=== PATIENT | male | born 1960 | race Caucasian/White ===

== ENCOUNTER 2019-02-09 10:14 | Day surgery (SDC) | payer OTHER ==
[2019-02-07 15:10] VITALS: BMI 28.0
[~2019-02-09 10:14] MED LIST: LACTATED RINGERS 1,000 ML IV SCH; LIDOCAINE 1% 20 ML VIAL (10MG/ML) FOR IV START INTRADERMA PRN
[2019-02-09 10:30] VITALS: RESP 16; TEMP 98.2
[2019-02-09] MEDS ORDERED: fentaNYL (PF) 50 MCG/ML 2 ML AMP ONE (11:10)
[2019-02-09] MEDS ORDERED: MIDAZOLAM 2 MG/2 ML VIAL ONE (11:10)
[2019-02-09] MEDS ORDERED: PROPOFOL 10 MG/ML 20 ML VIAL IV ONE (11:10)
--- NOTE | 2019-02-09 11:34 | P.PCN ---
Date of Procedure: 02/09/19 Procedure(s) Performed: BRIEF HISTORY: Patient is a 58-year-old pleasant white male scheduled for an elective colonoscopy as a part of screening for colorectal neoplasia. PROCEDURE PERFORMED: Colonoscopy. PREOPERATIVE DIAGNOSIS: Screening for colon cancer. IV sedation per Anesthesia. PROCEDURE: After informed consent was obtained, the patient, was brought into the endoscopy unit. IV sedation was administered by Anesthesia under continuous monitoring. Digital rectal examination was normal. External skin tag was noted. Initially the Olympus CF-160 flexible video colonoscope was then inserted in the rectum, gradually advanced into the cecum without any difficulty. Careful examination was performed as the scope was gradually being withdrawn. Ileocecal valve and the appendiceal orifice were visualized and appeared normal. Prep was excellent. Mucosa of the cecum, ascending colon, transverse colon, descending colon, sigmoid colon, and rectum appeared normal. Retroflexion was performed in the rectum and grade 2 internal hemorrhoids were seen. The patient tolerated the procedure well. IMPRESSION: Normal-appearing colon from rectum to cecum with no evidence of colorectal neoplasia Grade 2 internal hemorrhoids Small external skin. RECOMMENDATIONS: Findings of this examination were discussed with the patient as well as his family. He was advised to have a repeat screening colonoscopy in 10 years..
[2019-02-09 11:50] VITALS: BP 129/82; PULSE 77
== END 2019-02-09 12:25 | disposition home or self-care (01) ==
LOC: ORWHC2ENDO 10:14
PROVIDERS: ATTEND Internal Medicine Gastroenterology
DX: Z12.11 Encounter for screening for malignant neoplasm of colon (principal); K64.1 Second degree hemorrhoids; K64.4 Residual hemorrhoidal skin tags; Z98.890 Other specified postprocedural states
CPT/HCPCS: J2250; J3010; J2704; G0121

== ENCOUNTER 2024-03-14 05:38 | Observation (INO) | payer BC, OTHER ==
[2024-03-14] MEDS: ONDANSETRON 4 MG/2 ML VIAL IVP STA (06:10)
[2024-03-14 06:12] LABS: Basophils % (A) 0 %; Eosinophils # (A) 0.3 k/uL (0-0.7); Eosinophils % (A) 5 %; HGB 15.4 gm/dL (13.0-17.5); Lymphocytes # (A) 1.8 k/uL (1.0-4.8); Lymphocytes % (A) 30 %; MCH 29.8 pg (25.0-35.0); MCHC 32.8 g/dL (31.0-37.0); MCV 90.8 fL (80.0-100.0); Mean Platelet Volume 7.4; Monocytes # (A) 0.4 k/uL (0-1.0); Monocytes % (A) 7 %; Neutrophils # (A) 3.2 k/uL (1.3-7.7); Neutrophils % (A) 55 %; Platelet Count 251 k/uL (150-450); RBC 5.18 m/uL (4.30-5.90); RDW 12.6 % (11.5-15.5); WBC 5.9 k/uL (3.8-10.6)
[2024-03-14] MEDS: LABETALOL 5 MG/ML VIAL MDV IVP STA (06:13)
[2024-03-14] MEDS: LORazepam 2 MG/ML INJ IV STA (06:14)
[2024-03-14] MEDS: SODIUM CHLORIDE 0.9% 1,000 ML IV STA (06:18)
[2024-03-14 06:19] LABS: ALT 23 U/L (4-49); AST 27 U/L (17-59); African American GFR (CKD) >90 (>60 ml/min/1.73 sqM); Albumin 4.6 g/dL (3.5-5.0); Alkaline Phosphatase 80 U/L (38-126); Anion Gap 11 mmol/L; Blood Urea Nitrogen 16 mg/dL (9-20); Calcium 9.4 mg/dL (8.4-10.2); Carbon Dioxide 24 mmol/L (22-30); Chloride 103 mmol/L (98-107); Glucose 102 mg/dL (74-99); Lipase 132 U/L (23-300); Non-African American GFR(CKD) >90 (>60 ml/min/1.73 sqM); Sodium 138 mmol/L (137-145); Total Bilirubin 1.7 mg/dL (0.2-1.3); Total Protein 7.4 g/dL (6.3-8.2)
--- NOTE | 2024-03-14 06:19 | ED ---
Chest Pain HPI - General Chief Complaint: Chest Pain Stated Complaint: chest pain Time Seen by Provider: 03/14/24 05:57 Source: patient, RN notes reviewed Mode of arrival: ambulatory Limitations: no limitations - History of Present Illness Initial Comments: 63-year-old male presents emergency department with chief complaint of chest discomfort, neck discomfort hypertension. He has been having some issues of his neck which has been manage you but states is worse recently. Patient states that he had an appoint with his primary a while back was told that he should be started on some blood pressure meds he states he was monitoring for a while and was usually around 135/85 never higher states recently has been more lightheaded, dizzy show checked his blood pressure and his blood pressure has been elevated 200/100had increasing stress he has no prior cardiac disease that he knows of. Patient denies any lower extremity swelling pain any discomfort. Denies palpitations no history A-fib. - Related Data Home Medications Medication Instructions Recorded Confirmed No Known Home Medications 05/15/15 03/14/24 Allergies Allergy/AdvReac Type Severity Reaction Status Date / Time No Known Allergies Allergy Verified 03/14/24 09:25 Review of Systems ROS Statement: Those systems with pertinent positive or pertinent negative responses have been documented in the HPI. ROS Other: All systems not noted in ROS Statement are negative. EKG Findings - EKG Comments: EKG Findings:: EKG performed at 5: 51 sinus rhythm rate of 74 [place] 184 QRS 96 QT/QTc 366/394 - EKG Results: EKG: interpreted by YOVANY Past Medical History Additional Past Medical History / Comment(s): NEUROPATHY, PROBLEMS WITH BOWEL MOVEMENTS History of Any Multi-Drug Resistant Organisms: None Reported Past Surgical History: Hernia Repair Additional Past Surgical History / Comment(s): BILAT INGUINAL HERNIA, LT HAND tendon repair, COLONOSCOPY Past Anesthesia/Blood Transfusion Reactions: Postoperative Nausea & Vomiting (PONV) Additional Past Anesthesia/Blood Transfusion Reaction / Comment(s): HAD RUPTURED LOWER DISC POST 2ND HERNIA SX IN 2014 Past Psychological History: No Psychological Hx Reported Past Alcohol Use History: None Reported Past Drug Use History: None Reported - Past Family History Mother Family Medical History: Cancer Additional Family Medical History / Comment(s): PANCREATIC Father Family Medical History: CVA/TIA General Exam Limitations: no limitations General appearance: alert, in no apparent distress Head exam: Present: atraumatic, normocephalic, normal inspection Eye exam: Present: normal appearance, PERRL, EOMI. Absent: scleral icterus, con junctival injection, periorbital swelling ENT exam: Present: normal exam, normal oropharynx, mucous membranes moist Neck exam: Present: normal inspection. Absent: tenderness, meningismus, lymphadenopathy Respiratory exam: Present: normal lung sounds bilaterally. Absent: respiratory distress, wheezes, rales, rhonchi, stridor Cardiovascular Exam: Present: regular rate, normal rhythm, normal heart sounds. Absent: systolic murmur, diastolic murmur, rubs, gallop, clicks GI/Abdominal exam: Present: soft, normal bowel sounds. Absent: distended, tenderness, guarding, rebound, rigid Neurological exam: Present: alert, oriented X3, CN II-XII intact Course Vital Signs 03/14/24 03/14/24 03/14/24 05:39 06:11 06:36 Temperature 97.2 F L 98.0 F Pulse Rate 85 74 74 Respiratory 18 16 18 Rate Blood Pressure 191/105 172/96 157/109 O2 Sat by Pulse 98 100 100 Oximetry 03/14/24 03/14/24 03/14/24 07:34 07:45 08:43 Temperature 98.8 F Pulse Rate 67 81 75 Respiratory 16 16 16 Rate Blood Pressure 158/101 160/104 147/89 O2 Sat by Pulse 98 96 97 Oximetry 03/14/24 03/14/24 09:05 11:42 Temperature 98.8 F Pulse Rate 74 72 Respiratory 16 16 Rate Blood Pressure 147/98 147/97 O2 Sat by Pulse 98 99 Oximetry Chest Pain MDM - MDM Was pt. sent in by a medical professional or institution (, PA, DIRECTOR OF MANAGED CARE, urgent care, hospital, or senior care...) When possible be specific @ -No Did you speak to anyone other than the patient for history (EMS, parent, family, police, friend...)? What history was obtained from this source @ -No Did you review nursing and triage notes (agree or disagree)? Why? @ -I reviewed and agree with nursing and triage notes Were old charts reviewed (outside hosp., previous admission, EMS record, old EKG, old radiological studies, urgent care reports/EKG's, senior care records)? Report findings @ -No old charts were reviewed Differential Diagnosis (chest pain, altered mental status, abdominal pain women, abdominal pain men, vaginal bleeding, weakness, fever, dyspnea, syncope, headache, dizziness, GI bleed, back pain, seizure, CVA, palpatations, mental he alth, musculoskeletal)? @ -Differential Chest Pain: Stable Angina, Unstable Angina, STEMI, NSTEMI Aortic Dissection, Pneumothorax, Musculoskeletal, Esophageal Spasm GERD, Cholecystitis, Pancreatitis, Zoster, this is not meant to be an all-inclusive list. EKG interpreted by me (3pts min.). @ -As above X-rays interpreted by me (1pt min.). @ -Chest x-ray shows no acute cardiopulmonary process. CT interpreted by me (1pt min.). @ -None done U/S interpreted by me (1pt. min.). @ -None done What testing was considered but not performed or refused? (CT, X-rays, U/S, labs)? Why? @ -None What meds were considered but not given or refused? Why? @ -None Did you discuss the management of the patient with other professionals (professionals i.e. , PA, DIRECTOR OF MANAGED CARE, lab, RT, psych nurse, social media developer, solution developer, teacher, airframe technical officer, upper caser)? Give summary @ -Dr. Hein for admission Was smoking cessation discussed for >3mins.? @ -No Was critical care preformed (if so, how long)? @ -No Were there social determinants of health that impacted care today? How? (Homelessness, low income, unemployed, alcoholism, drug addiction, transportation, low edu. Level, literacy, decrease access to med. care, care home, rehab)? @ -No Was there de-escalation of care discussed even if they declined (Discuss DNR or withdrawal of care, Hospice)? DNR status @ -No What co-morbidities impacted this encounter? (DM, HTN, Smoking, COPD, CAD, Cancer, CVA, ARF, Chemo, Hep., AIDS, mental health diagnosis, sleep apnea, morbid obesity)? @ -None Was patient admitted / discharged? Hospital course, mention meds given and route, prescriptions, significant lab abnormalities, going to OR and other pertinent info. @ -[Admit the patient presented for complaints of chest pain, hypertension, lightheadedness. Patient will be made for cardiac rule out initial troponin EKG unremarkable. Undiagnosed new problem with uncertain prognosis? @ -No Drug Therapy requiring intensive monitoring for toxicity (Heparin, Nitro, Insulin, Cardizem)? @ -No Were any procedures done? @ -No Diagnosis/symptom? @ -Chest pain hypertension Acute, or Chronic, or Acute on Chronic? @Acute Uncomplicated (without systemic symptoms) or Complicated (systemic symptoms)? @ -Complicated Side effects of treatment? @ -No Exacerbation, Progression, or Severe Exacerbation? @ -No Poses a threat to life or bodily function? How? (Chest pain, [place], SD, pneumonia, PE, COPD, DKA, ARF, appy, cholecystitis, CVA, Diverticulitis, Homicidal, Suicidal, threat to staff... and all critical care pts) @ -Yes possible ACS causing cardiac function Disposition Clinical Impression: Chest pain, Hypertension Disposition: ADMITTED IP TO THIS HOSP Time of Disposition: 08:15
[2024-03-14 06:28] LABS: NT-Pro-B-Type Natriuretic Pept 88 pg/mL
[2024-03-14] MEDS: KETOROLAC 15 MG/ML 1 ML VIAL IVP STA (06:34)
[2024-03-14 07:09] LABS: Partial Thromboplastin Time 22.5 sec (22.0-30.0); Prothrombin Time 11.2 sec (10.0-12.5)
[2024-03-14 07:33] VITALS: RESP 16
[2024-03-14] MEDS: hydrALAZINE HCL 20 MG/ML 1 ML VIAL IVP STA ×2 (07:48→08:44)
--- NOTE | 2024-03-14 07:51 | XR ---
EXAMINATION TYPE: XR chest 2V DATE OF EXAM: 03/14/2024 7:30 AM COMPARISON: Chest radiographs from 03/14/2024 CLINICAL INDICATION: Male, 63 years old with history of pain; TECHNIQUE: XR chest 2V Frontal and lateral views of the chest. FINDINGS: Lungs/Pleura: There is no evidence of pleural effusion, focal consolidation, or pneumothorax. Pulmonary vascularity: Unremarkable. Heart/mediastinum: Cardiomediastinal silhouette is unremarkable. Musculoskeletal: No acute osseous pathology. Other findings: None IMPRESSION: 1. No acute cardiopulmonary disease process. 2. COPD changes. [facility], , 03/14/2024 7:49 AM
[2024-03-14] MEDS ORDERED: NITROGLYCERIN SL TABS 0.4 MG TAB SUBLINGUAL PRN (08:15)
[2024-03-14] MEDS: ASPIRIN 81 MG PO STA (08:42)
--- NOTE | 2024-03-14 12:49 | P.CRDCN ---
History of Present Illness History of present illness: HISTORY OF PRESENT ILLNESS: This is a 63-year-old male with a past medical history significant for chronic back pain and hernia repair. Patient does not follow with a operating room coordinator. We hav e been asked to see the patient in consultation for chest pain. Patient examined at the bedside in the emergency room. Patient states this morning he "didn't feel right". He states he has been feeling "off" for the past couple days. He reports chronic back and neck pain. He states he has been having pain in the middle of his back. He states that it feels like someone is sitting on his shoulders. He also describes it as "I feel like I have a sinus infection in the back of my head". He reports when he moves his neck, has pain that travels down his back. He also reports he has been feeling lightheaded and dizzy. He states he checks his blood pressure at home and it usually runs 120-130s over 80s. He does report that he was told he had hypertension in the past and his PCP wanted to put him on blood pressure medications but he has been trying to control his blood pressure with his diet. Blood pressure has been elevated since admission to the hospital. However blood pressure at the time of examination is in the 130s. DIAGNOSTICS: - EKG reveals sinus mechanism with no signs of acute ischemia. - Chest xray no acute cardiopulmonary process. COPD changes. - Laboratory data: WBC 5.9. Hemoglobin 15.4. Platelet count 251. Sodium 138. Potassium 4.0. BUN 16. Creatinine 0.80. Magnesium 2.0. Troponin negative x 2. proBNP 88. - Current home cardiac medications include none. - No previous echocardiogram, stress test, or cardiac catheterization available in EMR for review REVIEW OF SYSTEMS: At the time of my exam: CONSTITUTIONAL: Denies fever or chills. HEENT: Denies blurred vision, vision changes, or eye pain. Denies hemoptysis CARDIOVASCULAR: Denies chest pain. Denies orthopnea. Denies PND. Denies palpitations RESPIRATORY: Denies shortness of breath. GASTROINTESTINAL: Denies abdominal pain. Denies nausea or vomiting. HEMATOLOGIC: Denies bleeding disorders. GENITOURINARY: Denies any blood in urine. SKIN: Denies pruitis. Denies rash. PHYSICAL EXAM: VITAL SIGNS: Reviewed. GENERAL: Well-developed in no acute distress. HEENT: Head is normocephalic. Pupils are equal, round. Sclerae anicteric. Mucous membranes of the mouth are moist. Neck supple. No JVD or thyromegaly LUNGS: Respirations even and unlabored. Lungs essentially clear to auscultation bilaterally. HEART: Regular rate and rhythm. S1 and S2 heard. ABDOMEN: Soft. Nondistended. Nontender. EXTREMITIES: Normal range of motion. No clubbing or cyanosis. Peripheral pulses intact. No lower extremity edema NEUROLOGIC: Awake and alert. Oriented x 3. ASSESSMENT: Back and neck pain, likely musculoskeletal, troponin negative x 3 Possible hypertension History of chronic back pain History of hernia repair PLAN: An acute coronary event has been ruled out Obtain 2D echo to assess cardiac structure and function Decrease aspirin to 81 mg daily Continue to monitor blood pressures. No addition of antihypertensive medications at this time N.p.o. at midnight Patient to undergo stress echocardiogram tomorrow Further recommendations pending patient course Nurse practitioner note has been reviewed by physician. Signing provider agrees with the documented findings, assessment, and plan of care documented by SOCIAL PROBLEMS SPECIALIST as a scribe. Past Medical History Additional Past Medical History / Comment(s): NEUROPATHY, PROBLEMS WITH BOWEL MOVEMENTS History of Any Multi-Drug Resistant Organisms: None Reported Past Surgical History: Hernia Repair Additional Past Surgical History / Comment(s): BILAT INGUINAL HERNIA, LT HAND tendon repair, COLONOSCOPY Past Anesthesia/Blood Transfusion Reactions: Postoperative Nausea & Vomiting (PONV) Additional Past Anesthesia/Blood Transfusion Reaction / Comment(s): HAD RUPTURED LOWER DISC POST 2ND HERNIA SX IN 2014 Past Psychological History: No Psychological Hx Reported Past Alcohol Use History: None Reported Past Drug Use History: None Reported - Past Family History Mother Family Medical History: Cancer Additional Family Medical History / Comment(s): PANCREATIC Father Family Medical History: CVA/TIA Medications and Allergies Home Medications Medication Instructions Recorded Confirmed Type No Known Home Medications 05/15/15 03/14/24 History Allergies Allergy/AdvReac Type Severity Reaction Status Date / Time No Known Allergies Allergy Verified 03/14/24 09:25 Physical Exam Vitals: Vital Signs Temp Pulse Resp BP Pulse Ox 03/14/24 09:05 74 16 147/98 98 03/14/24 08:43 75 16 147/89 97 03/14/24 07:45 81 16 160/104 96 03/14/24 07:34 98.8 F 67 16 158/101 98 03/14/24 06:36 74 18 157/109 100 03/14/24 06:11 98.0 F 74 16 172/96 100 03/14/24 05:39 97.2 F L 85 18 191/105 98 Intake and Output 03/13/24 03/14/24 03/14/24 22:59 06:59 14:59 Other: Weight 81.647 kg Results 03/14/24 06:00 03/14/24 06:00 Cardiac Enzymes 03/14/24 03/14/24 03/14/24 Range/Units 06:00 06:00 08:49 AST 27 (17-59) U/L Troponin I <0.012 <0.012 (0.000-0.034) ng/mL Coagulation 03/14/24 Range/Units 06:00 PT 11.2 (10.0-12.5) sec APTT 22.5 (22.0-30.0) sec CBC 03/14/24 Range/Units 06:00 WBC 5.9 (3.8-10.6) k/uL RBC 5.18 (4.30-5.90) m/uL Hgb 15.4 (13.0-17.5) gm/dL Hct 47.0 (39.0-53.0) % Plt Count 251 (150-450) k/uL Comprehensive Metabolic Panel 03/14/24 Range/Units 06:00 Sodium 138 (137-145) mmol/L Potassium 4.0 (3.5-5.1) mmol/L Chloride 103 (98-107) mmol/L Carbon Dioxide 24 (22-30) mmol/L BUN 16 (9-20) mg/dL Creatinine 0.80 (0.66-1.25) mg/dL Glucose 102 H (74-99) mg/dL Calcium 9.4 (8.4-10.2) mg/dL AST 27 (17-59) U/L ALT 23 (4-49) U/L Alkaline Phosphatase 80 (38-126) U/L Total Protein 7.4 (6.3-8.2) g/dL Albumin 4.6 (3.5-5.0) g/dL Current Medications Generic Name Dose Route Start Last Admin Trade Name Freq PRN Reason Stop Dose Admin Aspirin 325 mg 03/15/24 09:00 Aspirin 325 Mg Tab PO DAILY STEPHANIE Nitroglycerin 0.4 mg 03/14/24 08:15 Nitroglycerin Sl Tabs 0.4 Mg Tab SUBLINGUAL Q5M PRN Chest Pain Intake and Output 03/13/24 03/14/24 03/14/24 22:59 06:59 14:59 Other: Weight 81.647 kg 03/14/24 06:00 03/14/24 06:00
[2024-03-14] MEDS ORDERED: ONDANSETRON 4 MG/2 ML VIAL IVP PRN (17:41)
[2024-03-14] MEDS ORDERED: MELATONIN 3 MG TABLET PO PRN (17:41)
[2024-03-14] MEDS ORDERED: NALOXONE 0.4 MG/ML 1 ML VIAL IV PRN (17:41)
--- NOTE | 2024-03-14 17:43 | P.HPIM ---
History of Present Illness H&P Date: 03/14/24 63 year old M with no significant PMH presents to the ED for chest pain. Patient reports waking up this morning feeling anxious. He has been monitoring his BP which has been borderline elevated with BP 130/80s. He reported chest pressure and lightheadedness which prompted him to come to the ED. He did try checking his BP at home for which he got an error message. He reports chronic neck pain radiating to the upper back which has been previously workup up with Dr. Rosado. Currently reports frontal headache. No recent heavy lifting. He denies any currently chest pain, shortness of breath, palpitations, or lightheadedness. In the ED he underwent extensive evaluation. BP 190/105, HR 85, T 97.2F, RR 18, 98% on RA. CBC, Coag panel, CMP significant for glu 102, T. Bili 1.7. Trop < 0.012 x 3. Lipase 132. BNP 88. EKG NSR. CXR no acute process. Patient is admitted for Cardiology evaluation. General: non toxic, no distress, appears at stated age Derm: warm, dry Head: atraumatic, normocephalic, symmetric Eyes: EOMI, no lid lag, anicteric sclera Mouth: no lip lesion, mucus membranes moist Cardiovascular: S1S2 reg, no murmur Lungs: CTA bilateral, no rhonchi, no rales , no accessory muscle use Ext: no gross muscle atrophy, no edema, no contractures Neuro: no focal neuro deficits Psych: Alert, oriented, appropriate affect Based on my assessment of this patient, this patient meets a high complexity level of care. Hypertensive urgency: Status post Hydralazine 5 mg IV x 1. Most recent BP 13 81. Monitor for now. Chest pressure: ASA 81 mg PO QD. Echo ordered. ACS ruled out. Telemetry emiliano stefano. Cardiology plans on stress test in the AM. Chronic neck pain radiating to the back: Previously worked up with Dr. Rosado. Recommend outpatient follow up. Toradol 15 mg IV Q6H PRN. CODE STATUS: FULL CODE DVT Prophylaxis: Lovenox SQ GI Prophylaxis: Designated medical POA if patient is not able to make medical decisions for themselves: I have reviewed the following hr business partner consultant notes: ED note. I have reviewed the results of the following tests: As above. I have ordered the following tests: As above. I have discussed the care of this patient with the following independent historian: Family. POTTER. I have independently interpreted the following test below: EKG. I have discussed the management of this patient with the following physician: Past Medical History Additional Past Medical History / Comment(s): NEUROPATHY, PROBLEMS WITH BOWEL MOVEMENTS History of Any Multi-Drug Resistant Organisms: None Reported Past Surgical History: Hernia Repair Additional Past Surgical History / Comment(s): BILAT INGUINAL HERNIA, LT HAND tendon repair, COLONOSCOPY Past Anesthesia/Blood Transfusion Reactions: Postoperative Nausea & Vomiting (PONV) Additional Past Anesthesia/Blood Transfusion Reaction / Comment(s): HAD RUPTURED LOWER DISC POST 2ND HERNIA SX IN 2014 Past Psychological History: No Psychological Hx Reported Past Alcohol Use History: None Reported Past Drug Use History: None Reported - Past Family History Mother Family Medical History: Cancer Additional Family Medical History / Comment(s): PANCREATIC Father Family Medical History: CVA/TIA Medications and Allergies Home Medications Medication Instructions Recorded Confirmed Type No Known Home Medications 05/15/15 03/14/24 History Allergies Allergy/AdvReac Type Severity Reaction Status Date / Time No Known Allergies Allergy Verified 03/14/24 09:25 Physical Exam Vitals: Vital Signs Temp Pulse Pulse Resp BP BP Pulse Ox 03/14/24 15:00 97.8 F 76 16 137/81 96 03/14/24 11:42 98.8 F 72 16 147/97 99 03/14/24 09:05 74 16 147/98 98 03/14/24 08:43 75 16 147/89 97 03/14/24 07:45 81 16 160/104 96 03/14/24 07:34 98.8 F 67 16 158/101 98 03/14/24 06:36 74 18 157/109 100 03/14/24 06:11 98.0 F 74 16 172/96 100 03/14/24 05:39 97.2 F L 85 18 191/105 98 Intake and Output 03/14/24 03/14/24 03/14/24 06:59 14:59 22:59 Intake Total 240 Balance 240 Intake: Oral 240 Other: # Voids 1 Weight 81.647 kg 81.647 kg Results CBC & Chem 7: 03/14/24 06:00 03/14/24 06:00 Labs: Abnormal Lab Results - Last 24 Hours (Table) 03/14/24 Range/Units 06:00 Glucose 102 H (74-99) mg/dL Total Bilirubin 1.7 H (0.2-1.3) mg/dL
[2024-03-14] MEDS: ACETAMINOPHEN TAB 325 MG TAB PO PRN (20:21)
[2024-03-15] MEDS: KETOROLAC 15 MG/ML 1 ML VIAL IVP PRN (03:39)
[2024-03-15 07:58] VITALS: BP 140/83; PULSE 68; TEMP 98
[2024-03-15] MEDS: ASPIRIN 81 MG PO SCH (08:49)
[2024-03-15] MEDS: ENOXAPARIN 40 MG/0.4 ML SYRINGE SQ SCH (08:50)
--- NOTE | 2024-03-15 08:52 | CA ---
Transthoracic Echo Report Name: Alberto Kim Age: 63 Gender: M : 1960 Exam Date: 03/14/2024 14:43 Exam Location: [facility] Ht (in): 69 Wt (lb): 180 Ordering Physician: Gagan Hinkle Attending/Referring Phys: Water Pipe Installer Khushbu Singh RDCS Procedure CPT: Indications: Chest Pain Cardiac Hx: Technical Quality: Good Contrast 1: Total Dose (mL): Contrast 2: Total Dose (mL): MEASUREMENTS (Male / Female) Normal Values 2D ECHO LV Diastolic Diameter PLAX 5.1 cm 4.2 - 5.9 / 3.9 - 5.3 cm LV Systolic Diameter PLAX 3.4 cm IVS Diastolic Thickness 1.0 cm 0.6 - 1.0 / 0.6 - 0.9 cm LVPW Diastolic Thickness 1.1 cm 0.6 - 1.0 / 0.6 - 0.9 cm LV Relative Wall Thickness 0.4 RV Internal Dim ED PLAX 3.4 cm LA Systolic Diameter LX 4.1 cm 3.0 - 4.0 / 2.7 - 3.8 cm LV Diastolic Volume MOD BP 148.6 cm??? 67 - 155 / 56 - 104 cm??? LV Systolic Volume MOD BP 59.6 cm??? 22 - 58 / 19 - 49 cm??? LV Ejection Fraction MOD BP 59.9 % >= 55 % LV Cardiac Index MOD BP 3237.6 cm???/min???m??? LV Diastolic Volume MOD 4C 159.2 cm??? LV Systolic Volume MOD 4C 77.9 cm??? LV Ejection Fraction MOD 4C 51.1 % LV Cardiac Index MOD 4C 2955.7 cm???/min???m??? LV Diastolic Length 4C 10.0 cm LV Systolic Length 4C 8.2 cm LV Diastolic Volume MOD 2C 135.5 cm??? LV Systolic Volume MOD 2C 43.0 cm??? LV Ejection Fraction MOD 2C 68.3 % LV Cardiac Index MOD 2C 3362.7 cm???/min???m??? LV Diastolic Length 2C 9.6 cm LV Systolic Length 2C 7.6 cm LA Volume 86.0 cm??? 18 - 58 / 22 - 52 cm??? LA Volume Index 42.9 cm???/m??? 16 - 28 cm???/m??? M-MODE Aortic Root Diameter MM 3.0 cm AV Cusp Separation MM 2.2 cm DOPPLER AV Peak Velocity 145.0 cm/s AV Peak Gradient 8.4 mmHg MV Area PHT 3.1 cm??? Mitral E Point Velocity 66.1 cm/s Mitral A Point Velocity 89.1 cm/s Mitral E to A Ratio 0.7 MV Deceleration Time 244.6 ms FINDINGS Left Ventricle Left ventricular ejection fraction is estimated at 55-60 %. Left ventricular cavity size normal. Mildly increased left ventricular systolic volume. Normal left ventricular wall motion. Right Ventricle Mild right ventricular dilatation. Unable to estimate the right ventricular systolic pressure. Right Atrium Mild right atrial dilatation. No right atrial thrombus or mass seen. Left Atrium Severely increased left atrial volume. Mildly increased left atrial area. No left atrial thrombus or mass present. Mitral Valve Structurally normal mitral valve. No mitral stenosis, or prolapse.trace to mild mitral regurgitation. Aortic Valve Trileaflet aortic valve. No aortic valve stenosis or regurgitation. Tricuspid Valve Structurally normal tricuspid valve. No tricuspid stenosis. Trace to mild tricuspid regurgitation. Pulmonic Valve Structurally normal pulmonic valve. No pulmonic regurgitation. Pericardium No pericardial or pleural effusion. Aorta Normal size aortic root and proximal ascending aorta. CONCLUSIONS 1. Normal left ventricular size and systolic function 2. Trace to mild mitral and tricuspid regurgitation Previewed by: Dr. Acosta Duke MD (Electronically Signed) Final Date: 15 March 2024 08:51
[2024-03-15 08:56] LABS: Chol/HDL Ratio 3.37 Ratio; LDL Cholesterol,Calculated 113.3 mg/dL (0.0-131.0); VLDL Calculation 13.26 mg/dL (5.00-40.00)
[2024-03-15] MEDS ORDERED: ASPIRIN 325 MG TAB PO SCH (09:00)
--- NOTE | 2024-03-15 10:37 | P.PN ---
Subjective HISTORY OF PRESENT ILLNESS: This is a 63-year-old male with a past medical history significant for chronic back pain and hernia repair. Patient does not follow with a crap shooter. We have been asked to see the patient in consultation for chest pain. Patient examined at the bedside in the emergency room. Patient states this morning he "didn't feel right". He states he has been feeling "off" for the past couple days. He reports chronic back and neck pain. He states he has been having pain in the middle of his back. He states that it feels like someone is sitting on his shoulders. He also describes it as "I feel like I have a sinus infection in the back of my head". He reports when he moves his neck, has pain that travels down his back. He also reports he has been feeling lightheaded and dizzy. He states he checks his blood pressure at home and it usually runs 120-130s over 80s. He does report that he was told he had hypertension in the past and his PCP wanted to put him on blood pressure medications but he has been trying to cont rol his blood pressure with his diet. Blood pressure has been elevated since admission to the hospital. However blood pressure at the time of examination is in the 130s. DIAGNOSTICS: - EKG reveals sinus mechanism with no signs of acute ischemia. - Chest xray no acute cardiopulmonary process. COPD changes. - Laboratory data: WBC 5.9. Hemoglobin 15.4. Platelet count 251. Sodium 138. Potassium 4.0. BUN 16. Creatinine 0.80. Magnesium 2.0. Troponin negative x 2. proBNP 88. - Current home cardiac medications include none. - No previous echocardiogram, stress test, or cardiac catheterization available in EMR for review 03/15/2024 Patient examined this morning at the bedside. Patient currently denies any chest pain or pressure. He denies any shortness of breath. Blood pressures hav e been slightly elevated overnight and this morning. Echocardiogram completed revealing ejection fraction 55 to 60%, trace to mild mitral and tricuspid regurgitation. PHYSICAL EXAM: VITAL SIGNS: Reviewed. GENERAL: Well-developed in no acute distress. HEENT: Head is normocephalic. Pupils are equal, round. Sclerae anicteric. Mucous membranes of the mouth are moist. Neck supple. No JVD or thyromegaly LUNGS: Respirations even and unlabored. Lungs essentially clear to auscultation bilaterally. HEART: Regular rate and rhythm. S1 and S2 heard. ABDOMEN: Soft. Nondistended. Nontender. EXTREMITIES: Normal range of motion. No clubbing or cyanosis. Peripheral pulses intact. No lower extremity edema NEUROLOGIC: Awake and alert. Oriented x 3. ASSESSMENT: Back and neck pain, likely musculoskeletal, troponin negative x 3 Hypertension History of chronic back pain History of hernia repair PLAN: Add losartan 25 mg daily Continue to monitor blood pressure Patient to undergo stress echocardiogram today If negative, patient may be discharged home from a cardiac standpoint Further recommendations pending patient course Nurse practitioner note has been reviewed by physician. Signing provider agrees with the documented findings, assessment, and plan of care documented by [employer]IDENT[employer] SAL[employer] CONSULTANT as a scribe. Objective - Vital Signs Vital signs: Vital Signs Temp 98.0 F 03/15/24 07:15 Pulse 68 03/15/24 07:15 Resp 16 03/15/24 08:00 BP 140/83 03/15/24 07:15 Pulse Ox 97 03/15/24 07:15 FiO2 Intake & Output 03/14/24 03/15/24 03/15/24 18:59 06:59 18:59 Intake Total 358 Balance 358 Weight 81.647 kg Intake: Oral 358 Other: Voiding Method Toilet # Voids 1 1 - Labs CBC & Chem 7: 03/14/24 06:00 03/14/24 06:00
[2024-03-15] MEDS: LOSARTAN 25 MG TAB PO SCH (11:12)
--- NOTE | 2024-03-15 11:29 | CA ---
Stress Echo Report Alberto Kim Age: 63 Gender: M : 1960 Exam Date: 03/15/2024 09:44 Exam Location: [place] Stress Ht (in): 70 Wt (lb): 195 Ordering Physician: Lianna Salamanca Referring Physician: [id number] News Reel Cameraman: MATIAS Technologist Procedure CPT: Indication: CP ICD-9 Codes: Rhythm: Patient History: Cardiac Medications: see chart Medications in past 24 hours: Contrast: N/A Stress Results Protocol: Mikel Total dose(mL): NA Exercise Duration (min:sec): 9:[address] Depression (mm): 0 Angina Score: 0 Crews Score: 9.68 METS: 11.3 Resting HR: 74 Resting BP: 148 / 96 Peak HR: 153 Peak BP: 224 / 108 Max Predicted HR: 158 97 % Max Predicted HR Target HR: 134 Double Product: 15121 Stress Summary: The patient's target heart rate was achieved BP Response: Abnormal increase in BP during/after stress Reason for Termination: Reached target heart rate or work-load Cardiac Symptoms: No Symptoms ECG Analysis Resting ECG: Normal sinus rhythm, normal ECG Stress ECG: No abnormal ST/T wave changes with exercise Arrhythmia: None Echo Analysis Resting Echo: Normal resting echocardiogram. Peak Echo Analysis: Normal wall thickening and motion MEASUREMENTS (Male/Female) Normal Values CONCLUSIONS Patient falls into low-risk group (DTS >= +5). This associates the patient with an annual CV mortality <= 0.5%. Good exercise tolerance Normal electrocardiographic response to exercise Normal stress echocardiogram with no evidence of stress induced ischemia Dr. Acosta Duke MD (Electronically Signed) Final Date: 15 March 2024 11:28
--- NOTE | 2024-03-15 12:31 | P.DS ---
Providers Date of admission: 03/14/24 07:56 Expected date of discharge: 03/15/24 Attending physician: Slade Hein Consults: 03/14/24 08:15 Consult Physician Urgent Consulting Provider: Acosta Duke Consult Reason/Comments: chest pain Do you want consulting provider notified?: Yes Primary care physician: [facility] Course: 63 year old M with no significant PMH presents to the ED for chest pain. Patient reports waking up this morning feeling anxious. He has been monitoring his BP which has been borderline elevated with BP 130/80s. He reported chest pressure and lightheadedness which prompted him to come to the ED. He did try checking his BP at home for which he got an error message. He reports chronic neck pain radiating to the upper back which has been previously workup up with Dr. Rosado. Currently reports frontal headache. No recent heavy lifting. He denies any currently chest pain, shortness of breath, palpitations, or lightheadedness. In the ED he underwent extensive evaluation. BP 190/105, HR 85, T 97.2F, RR 18, 98% on RA. CBC, Coag panel, CMP significant for glu 102, T. Bili 1.7. Trop < 0.012 x 3. Lipase 132. BNP 88. EKG NSR. CXR no acute process. Patient is admitted for Cardiology evaluation. Troponin < 0.012 x 3 and ACS ruled out. Patient underwent stress echo which was negative. SBP ranging from 130-152 during hospitalization, started on Losartan. Cardiology cleared the patient for discharge. 03/05 Patient was seen and examined. No chest pain. Reports chronic neck pain radiating down the right back. Discharge Plans: Prescription for ASA and Losartan sent to pharmacy. Follow up with Cardiology within 1 week of discharge. Diet: Low salt. Follow up with Dr. Grewal for re-evaluation of chronic neck and lower back pain within 1 week of discharge. General: non toxic, no distress, appears at stated age Derm: warm, dry Head: atraumatic, normocephalic, symmetric Eyes: EOMI, no lid lag, anicteric sclera Mouth: no lip lesion, mucus membranes moist Cardiovascular: S1S2 reg, no murmur Lungs: CTA bilateral, no rhonchi, no rales , no accessory muscle use Ext: no gross muscle atrophy, no edema, no contractures Neuro: no focal neuro deficits Psych: Alert, oriented, appropriate affect Discharge Diagnosis: Hypertensive urgency Chest pressure Chronic neck pain radiating to the back This complex discharge took 35 minutes to complete. Patient Condition at Discharge: Stable Plan - Discharge Summary New Discharge Prescriptions: New Aspirin 81 mg PO DAILY #30 tab Losartan [Cozaar] 25 mg PO DAILY #30 tab Discharge Medication List Aspirin 81 mg PO DAILY #30 tab 03/15/24 [Rx] Losartan [Cozaar] 25 mg PO DAILY #30 tab 03/15/24 [Rx] Follow up Appointment(s)/Referral(s): Acosta Duke MD [STAFF PHYSICIAN] - 1 Week Rj Lu MD [Primary Care Provider] - 1-2 days Aron Grewal DO [Doctor of Osteopathic Medicine] - 1 Week Activity/Diet/Wound Care/Special Instructions: Diet: Low salt Discharge Disposition: HOME SELF-CARE
== END 2024-03-15 13:00 | disposition home or self-care (01) ==
LOC: EC 05:38 → 6NMEDSUR 07:56
PROVIDERS: ADMIT Student in an Organized Health Care Education/Training Program; ATTEND Student in an Organized Health Care Education/Training Program
DX: I16.0 Hypertensive urgency (principal); I10 Essential (primary) hypertension; G89.29 Other chronic pain; M54.2 Cervicalgia; M54.9 Dorsalgia, unspecified; Z79.899 Other long term (current) drug therapy
CPT/HCPCS: 96376; 96361; 96374; 96375; 99285; 36415; 93005; 93306; 93351; 83880; 80061; 80053; 83690; 83735; 84484; 85025; 85610; 85730; 71046; G0378 ×2; J2060; J0360; J1885 ×2

== ENCOUNTER → 2024-03-22 | Outpatient (CLI) | payer BC ==
[2024-03-22 12:21] LABS: ABG Base Excess 1.4 mmol/L; ABG HCO3 26 mmol/L (21-25); ABG PCO2 39 mmHg (35-45); ABG PH 7.43 (7.35-7.45); ABG PO2 82 mmHg (83-108); ABG TCO2 27 mmol/L (19-24); Allen Test Performed? Yes
[2024-03-22 15:52] LABS: Basophils # (A) 0.02 X 10*3/uL (0.00-0.10); Basophils % (A) 0.3 %; Eosinophils # (A) 0.14 X 10*3/uL (0.04-0.35); HCT 43.9 % (39.6-50.0); HGB 14.3 g/dL (13.0-17.0); Lymphocytes % (A) 17.5 %; MCH 29.7 pg (27.0-32.0); MCHC 32.6 g/dL (32.0-37.0); MCV 91.3 FL (80.0-97.0); Mean Platelet Volume 10.8 FL (9.5-12.2); Monocytes # (A) 0.55 X 10*3/uL (0.20-1.00); NRBC Per 100 WBC 0 X 10*3/uL (0.00-0.01); Neutrophils # (A) 4.91 X 10*3/uL (1.80-7.70); Neutrophils % (A) 71.9 %; Platelet Count 285 X 10*3/uL (140-440); RBC 4.81 X 10*6/uL (4.40-5.60); RDW 12.9 % (11.5-14.5); WBC 6.84 X 10*3/uL (4.50-10.00)
[2024-03-22 16:41] LABS: ALT 22 U/L (10-49); AST 20 U/L (14-35); Albumin 4.5 g/dL (3.8-4.9); Albumin/Globulin Ratio 1.88 Ratio (1.60-3.17); Alkaline Phosphatase 85 U/L (41-126); BUN/Creat Ratio 13.78 Ratio (12.00-20.00); Blood Urea Nitrogen 12.4 mg/dL (9.0-27.0); Calcium 9.5 mg/dL (8.7-10.3); Carbon Dioxide 24.6 mmol/L (21.6-31.8); Chloride 106 mmol/L (96-109); Globulin 2.4 g/dL (1.6-3.3); Glucose 100 mg/dL (70-110); Potassium 4.6 mmol/L (3.5-5.5); Sodium 141 mmol/L (135-145); Total Bilirubin 1.2 mg/dL (0.3-1.2); Total Protein 6.9 g/dL (6.2-8.2)
== END | disposition home or self-care (01) ==
LOC: LABWHC1 11:40
PROVIDERS: ATTEND Physician Assistant
DX: Z77.128 Contact with and (suspected) exposure to other hazards in the physical environment (principal)
CPT/HCPCS: 36415; 36600; 80053; 82805; 85025

== ENCOUNTER → 2024-04-20 | Outpatient (CLI) | payer BC ==
--- NOTE | 2024-04-20 20:50 | MR ---
EXAMINATION TYPE: MR rhys/alecia wo con DATE OF EXAM: 04/20/2024 5:48 PM COMPARISON: None. CLINICAL INDICATION: Male, 64 years old with history of M54.6 PAIN IN TS M54.16 RADICULOPATHY, LUMBAR ERIC, Back pain into arms but more on RT side TECHNIQUE: Multiplanar, multiecho imaging on a 3.0 Nneka magnet is performed through the thoracic spi ne. IV Contrast: mL (None, if empty) FINDINGS: Spinal cord maintains normal signal through its visualized course. Vertebral body alignment is normal. Vertebral body heights are preserved. Disc heights are preserved. Disc hydration levels are preserved. T7-8: There is a tiny central to left paracentral disc bulge with anterior thecal sac contact. No co rd contact. No spinal canal stenosis is present. T3-4: Mild disc bulge is present with anterior thecal sac flattening. This comes in close approximati on with the spinal cord. No AP spinal canal stenosis is present No spinal canal stenosis is evident. IMPRESSION: 1. Tiny central disc bulge at T7-8 with mild anterior thecal sac contact. 2. Mild broad-based disc bulge T3-4 with anterior thecal sac flattening. EXAMINATION TYPE: MR rhys/alecia wo con DATE OF EXAM: 04/20/2024 5:48 PM COMPARISON: None. CLINICAL INDICATION: Male, 64 years old with history of M54.6 PAIN IN TS M54.16 RADICULOPATHY, LUMBAR ERIC, Back pain into arms but more on RT side TECHNIQUE: Multiplanar, multisequence images of the lumbar spine were acquired. IV Contrast: mL (None, if empty) FINDINGS: Cord ends at the L1-L2 level. L5-S1: No focal disc herniation or significant disc bulge. No spinal canal stenosis. Neural foramen are patent. Moderate type I endplate changes are present L4-L5: Broad-based disc bulge is anterior thecal sac flattening. No AP spinal canal stenosis is prese nt. Mild facet hypertrophy is present. Neural foramen are patent. L3-L4: Broad-based disc bulge is present with anterior thecal sac flattening. Subligamentous disc ext ension may be present. Facet hypertrophy with ligamentum flavum laxity has posterior lateral thecal s ac compression. No spinal canal stenosis. There may be a acute Schmorl's node formation along the in ferior endplate of L3 Modic type I endplate changes are present. L2-L3: Broad-based disc bulge is present with anterior thecal sac flattening. No AP spinal canal sten osis. Facet hypertrophy has mild posterior lateral thecal sac compression. L1-L2: No focal disc herniation or significant disc bulge. No spinal canal stenosis. Neural foramen are patent. Mild facet hypertrophy and ligamentum flavum laxity is present with anterior thecal sac contact T12-L1: No focal disc herniation or significant disc bulge. No spinal canal stenosis. Neural forame n are patent. IMPRESSION: 1. Mild disc bulging present appears to be greatest at L3-4 and L4-5 without stenosis. 2. There may be an acute Schmorl's node formation at the inferior endplate of L3. [facility], , 04/20/2024 8:47 PM
== END | disposition home or self-care (01) ==
LOC: RADMRIMAIN 16:22
PROVIDERS: ATTEND Family Medicine
DX: M47.26 Other spondylosis with radiculopathy, lumbar region (principal)
CPT/HCPCS: 72146; 72148

== ENCOUNTER → 2024-05-07 | Outpatient (CLI) | payer BC ==
--- NOTE | 2024-05-07 11:22 | CT ---
EXAMINATION TYPE: CT chest wo con DATE OF EXAM: 05/07/2024 COMPARISON: NONE CLINICAL INDICATION: Male, 64 years old with history of Z80.8 FAMILY HISTORY OF MALIGNANT NEOPLASM OF ORGAN, mid upper back pain with persistent cough. TECHNIQUE: CT scan of the thorax is performed without IV contrast. CT DLP: 372.6 mGycm. Automated Exposure Control for Dose Reduction was Utilized. FINDINGS: LUNGS: The lungs are grossly clear, there is no concerning parenchymal mass or focal consolidation id entified. There is no pleural effusion or pneumothorax seen. The tracheobronchial tree is patent. HEART: Size within normal limits. No significant coronary artery calcifications. MEDIASTINUM: Lack of IV contrast is noted to limit evaluation for mediastinal and especially hilar ad enopathy. There are no definitive greater than 1 cm mediastinal lymph nodes. No cardiomegaly or per icardial effusion is seen. OTHER: Few colonic diverticula. Multilevel of the thoracic spine is seen. IMPRESSION: No suspicious pulmonary nodules or masses. No acute or chronic pulmonary parenchymal proc ess. [facility], , 05/07/2024 11:19 AM
== END | disposition home or self-care (01) ==
LOC: RADCTMAIN 08:47
PROVIDERS: ATTEND Family Medicine
DX: R59.0 Localized enlarged lymph nodes (principal)
CPT/HCPCS: 71250